=== PATIENT | female | born 1935 | race Caucasian/White ===

== ENCOUNTER 2016-12-04 01:33 | Inpatient (IN) ==
[2016-12-04] MEDS ORDERED: ONDANSETRON 4 MG/2 ML VIAL IV STA (02:22)
[2016-12-04 03:07] LABS: Basophils % 0.4 % (0.0-0.8); Eosinophils # 0.1 10*3/uL (0.0-0.87); Eosinophils % 0.8 % (0.00-10.9); Hematocrit 43.8 VOL% (35.7-47.0); Hemoglobin 15.1 GM/DL (12.0-16.0); Immature Granulocytes % 0.5 %; Immature Granulocytes Absolute 0.05 #; Lymphocytes # 1.5 10*3/uL (1.4-4.0); Lymphocytes % 13.9 % (21.3-54.2); Mean Corpuscular HGB Conc 34.5 GM/DL (32-36); Mean Corpuscular Hemoglobin 32 PG (27-34); Mean Corpuscular Volume 91.4 FL (87-102); Mean Platelet Volume 10.9 FL (9.6-12.0); Monocytes # 0.7 10*3/uL (0.11-0.8); Monocytes % 6.8 % (1.7-12.7); Neutrophils # 8.3 10*3/uL (1.4-7.4); Neutrophils % 77.6 % (38.7-73.9); Platelet Count 153 T/CUMM (130-400); Red Blood Count 4.79 MC/CUMM (3.8-5.5); Red Cell Distribution Width 13.2 % (9.3-17.3); White Blood Count 10.7 T/CUMM (4-12)
[2016-12-04] MEDS ORDERED: ONDANSETRON 4 MG/2 ML VIAL ONE (03:14)
[2016-12-04 03:17] LABS: INR 1.1; PT Patient Result 11.4 SECS; Partial Thromboplastin Time 26.3 SECS (0-40)
[2016-12-04 03:27] LABS: Albumin 3.7 G/DL (3.4-5.0); Bilirubin,Total 0.5 MG/DL (0.2-1.0); Calcium 9.1 MG/DL (8.5-10.1); Osmolality,Calculated 287.8 MOS/KG (273-304); Potassium 3.8 MMOL/L (3.5-5.1); Total Protein 6.2 G/DL (6.4-8.3)
[2016-12-04 03:44] LABS: Apearance,Urine CLEAR (Clear); Bacteria,Urine Occasional /HPF (Few); Bilirubin,Urine Negative (Negative); Blood, Urine Small mg/dL (Negative); Glucose,Urine (UA) Negative (Negative); Ketones,Urine Negative (Negative); Mucus,Urine Occasional /LPF (Occasional); Nitrite,Urine Negative (Negative); Protein,Urine Negative; RBC,Urine 1 /HPF (0-4); Squamous Epithelial Cell,Urine Occasional /HPF (0-10); Transitional Epi Cells,Urine Occasional /HPF (<1); Urine Color Yellow (Yellow); Urine Specific Gravity 1.008 (1.001-1.035); Urine Urobilinogen < 2.0 EU/DL (0.2-1.0); WBC,Urine 2 /HPF (0-6)
--- NOTE | 2016-12-04 05:21 | EKG Report ---
Stationary ECG Study [facility] ER Test Date: 12/04/2016 2:44:59 AM Pat Name: KOURTNEY CARTWRIGHT Department: Room: Gender: F [place] [employer]er: : 1935 Requested by: Shauna Rivas Order Number: [id number] Lulu MD: JOSE RAFAEL MESSINA Intervals [place] Rate: 81 P: 68 [place]: 145 QRS: 54 QRSD: 86 T: 58 QT: 402 QTc: 439 Interpretive Statements SINUS RHYTHM Electronically Signed On 12-06-16 12:38:13 CDT by JOSE RAFAEL MESSINA [id number]
--- NOTE | 2016-12-04 06:47 | Emergency Department Note ---
Alan Gerardo Sierra, am scribing for, and in the presence of, Shauna Rivas DO 02:17. IRob Catherine, DO, personally performed the services described in this documentation, ascribed by Amie Phillips in my presence, and it is both accurate and complete 626 . Arrival - Arrival Chief Complaint: Fall ED Nursing Triage Note: C/O Fall striking head on fireplace- Pt reports that she was dizzy before the fall. +nausea/vomiting. abrasion to bridge of nose and laceration to back of head. Unknown LOC. GCS 15/15 at time of triage. 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 Pt also has an abrasion to the nose and right arm. Pt reports she got up to close her curtains when she got dizzy and fell and hit her head on her brick fireplace stating her "equilibrium is off." Pt states this is her second fall of this night and was seen at [facility] for the first fall where she slid out of her chair. Nurse spoke with [facility] and was told pt had a CT of the head that was negative except for the brain tumor that pt is aware of and pt was cleared and discharged home around 2200 tonight. Pt states she had an operation on her brain tumors in 1995 where her skull was left open. Pt states when she fell this time EMS suggested she come here for an MRI of the brain. PT states she does live at home alone and used her LifeAlert to call EMS. Pt reports she alternated aleve and aspirin for arthritis. Pt denies neck pain at this time. PT is also unaware if her tetanus is UTD. Pt's PCP is Dr. Bagley. Pt denies heart problems or DM. No other complaints/pain in ED. Onset (ago): hour(s) Consistency: constant Severity: moderate Severity scale (1-10): 4 Quality: sharp Date of Last Menstrual Period: Hysterectomy Allergies/Adverse Reactions: Allergies Allergy/AdvReac Type Severity Reaction Status Date / Time acetaminophen Allergy Intermediate RASH Verified 12/04/16 01:46 [From Darvocet-N] meperidine [From Demerol] Allergy Intermediate RASH Verified 12/04/16 01:46 propoxyphene Allergy Intermediate RASH Verified 12/04/16 01:46 [From Darvocet-N] Home Medications: Home Medications Medication Instructions Recorded Confirmed Type No Known Home Medications [No 12/04/16 12/04/16 History Known Home Medications] Review of System - Review of System 12 point system: reviewed and no additional remarkable complaints except as stated - Review of System Constitutional: Present: weakness, other (dizziness). Absent: chills, fever Respiratory: Absent: cough Cardiovascular: Absent: chest pain Gastrointestinal: Present: nausea. Absent: abdominal pain Musculoskeletal: Absent: arm pain, back pain, leg pain, neck pain Skin: Present: other (abrasion to the nose and right arm; laceration to the back of the scalp s/p fall) Neurological: Present: weakness, abnormal gait, vertigo. Absent: headache Psychiatric: Absent: anxiety Medical,Surgical,& Family Hx - Medical History Cardio: History of: Hypertension Other: History of: Miscellaneous Medical Problems (brain tumors) - Surgical History Neurologic Surgeries: Surgical HX of: Neurologic Surgery - Family History Family History: noncontributory - Social History Smoking Status: Never smoker Frequency of Alcohol Use: None Type of Drug Use: None Marital Status: Single Lives With:: Alone Functional capacity: independent ambulation (vb) Exam Vital Signs: Vital Signs Temperature 98.2 F 12/04/16 01:33 Pulse Rate 84 12/04/16 01:33 Respiratory Rate 18 12/04/16 01:33 Blood Pressure 179/74 12/04/16 01:33 O2 Sat by Pulse Oximetry 95 12/04/16 01:33 - General General appearance: alert, in no apparent distress - Head Head exam: Present: atraumatic, normocephalic - Eye Eye exam: Present: PERRL, EOMI - ENT ENT exam: Present: mucous membranes moist. Absent: mucous membranes dry - Neck Neck exam: Present: full ROM. Absent: tenderness - Chest Chest inspection: Present: symmetric chest wall rise. Absent: tenderness - Respiratory Respiratory exam: Present: normal lung sounds bilaterally. Absent: respiratory distress - Cardiovascular Cardiovascular exam: Present: regular rate, normal rhythm, normal heart sounds - Abdominal Exam Abdominal exam: Present: soft, normal bowel sounds. Absent: distention, tenderness, diminished bowel sounds - Extremities Exam Extremities exam: Present: full ROM, other (she has a large abrasion to the right forearm). Absent: tenderness - Back Exam Back exam: Present: full ROM. Absent: tenderness - Neurological Exam Neurological exam: Present: alert, oriented X3, CN II-XII intact. Absent: motor sensory deficit - Psychiatric Psychiatric exam: Present: normal affect, normal mood - Skin Skin exam: Present: warm, dry, other (nasal abrasion; abrasion to the right arm ; 2.5 cm laceration to the back of the skull into the dermis and epidermis) Course Course Narrative: This is an 81-year-old female who is coming to the ER today following a second episode of a fall today. This was a reports to me that she has known tumors in her brain she had surgery back in 1998 for this. She is followed by Dr. Harvey who is a neurosurgeon at the [facility] in [place]. She states to me that she in the past 2 years has just been receiving x-rays but they haven 't done any other treatment. She has been having a sensation of very bad dizziness that has been ongoing and progressive for about the last 7-10 days. Last night she actually fell once out of her chair she was taken to a smaller Hospital evaluated and sent home. She stated to me that a little bit later in the night she was trying to close some curtains and she again became very dizzy and fell backward this time she struck her head on the fireplace. She was able to use her life alert button and called for 911. She stated it was the medics the told her she ought to come to our hospital because we could do an MRI to further evaluate why she was falling. In my evaluation the patient's complaining of her head hurting with laceration is but she has no other complaints such as chest pain abdominal pain or new symptoms. She does live alone but she is very capable she says she takes care of her self she does have some caregivers that come in but she normally does everything on her own. Physical exam the patient is awake and alert her vital signs are stable HEENT exam pupils are equal and reactive. She does have about a 3 cm linear scalp laceration to the left posterior parietal region. It is into the dermis epidermis and galeal tissues. The edges are smooth bleeding is controlled. Her neck is otherwise supple she has no pain to the cervical thoracic or lumbar spine. Heart has a regular rate and rhythm lungs are clear in the anterior and posterior feels her abdomen is round soft and nontender her extremities are intact. She does have some of the abrasions noted to the right forearm and she stated this occurred when she fell the first time tonight. Aortic exam she has no focal deficits for me she is alert and appropriate and answers all my questions. Treatment in the ER workup for the syncope and vertigo it is CT of her head and neck CT of the head dishes the chronic changes from the meningiomas but no bleeding no fractures no shift. The CT of her neck to shows arthritis. Multiple blood tests were performed and are negative first EKG was also negative. I spoke to our hospitalist to had concerns about admitting her without speaking to her neurosurgeon first. The patient wanted to go to [place] I did place a phone call to [facility], but the [place] was full and unable to take the patient. She then requested to go to [place]. I did place a phone call to the [facility] multifocal button inspector Dr. Ward who is on-call for Dr. Harvey of neurosurgery. She reviewed the patient's case and felt that at this point she needs workup for the syncope from a medical standpoint but the neurosurgery would not provide any benefit to her care. She is recommended that we admit her for medical workup. I placed a phone call to the hospitalist service and spoke to Dr. Roberto and the patient will be admitted here for ongoing treatment. - Consultations Consultation #1: Dr. ward at [facility] Time: 06:30 Consultation #2: Dr. Roberto Time: 07:15 Procedures - Laceration Laceration 1 Site: scalp Size (cm): 3.0 Description: linear Depth: simple, single layer, involves muscle layer (galea has been cut as well - down to the skull) Local Anesthetic: lidocaine 1%, with epi Amount of Anesthesia Used (mL): 10 Pre-repair: wound explored, irrigated extensively Skin layer closed with: other (angel) Subcutaneous layer closed with: vicryl Size: 4-0 Number of sutures: 4 Technique: simple, interrupted Results - Labs CBC & BMP: 12/04/16 02:55 12/04/16 02:55 Lab Results: I have reviewed the patients labs Labs: Laboratory Tests 12/04/16 02:55 Neut % (Auto) 77.6 H Lymph % (Auto) 13.9 L Neut # (Auto) 8.3 H Laboratory Tests 12/04/16 02:55 INR 1.1 PT Patient/Control Mix 11.4 Circ Anticoag PTT 26.3 Laboratory Tests 12/04/16 02:55 Chloride 108 H BUN/Creatinine Ratio 25.00 H Alkaline Phosphatase 138 H Total Protein 6.2 L Laboratory Tests 12/04/16 02:55 Urine Color Yellow Urine Appearance Clear Urine pH 6.0 Ur Specific [place] 1.008 Urine Protein Negative Urine Glucose (UA) Negative Urine Ketones Negative Urine Blood Small Urine Nitrate Negative Urine Bilirubin Negative Urine Urobilinogen < 2.0 H Urine Leukocytes Trace Urine RBC 1 Urine WBC 2 Ur Squamous Epith Cells Occasional Ur Transition Epith Cell Occasional Urine Bacteria Occasional Urine Mucus Occasional - EKG EKG results: interpreted by ERMD, WNL, sinus rhythm - Diagnostic Findings Procedure: CT: report reviewed by me (neck has arthritis/head shows tumors - no shift or bleed or fracture) Disposition Clinical Impression: Vertigo, Falls frequently, Laceration of scalp Case discussed with: patient Disposition: Still a Patient Condition: Stable Time of Disposition: 07:16
--- NOTE | 2016-12-04 07:10 | CT Report ---
CT brain Indication: Head injury, fall Comparison: 19 September 2014 Technique: Axial CT imaging of the brain is performed without contrast with 3 mm increments. Findings: No evidence of acute hemorrhage or acute infarct seen. Extra-axial tumor superiorly is slightly increased in size compared to previous exam mostly isodense to brain parenchyma, 4.6 x 3.1 cm in size. There is edema in the adjacent white matter causing localized mass effect. Additional isointense densities adjacent to the cerebral falx inferiorly is present with ill-defined borders but similar findings were present on previous exam. There is decreased density and volume loss seen in the superior medial cerebellar hemisphere similar to previous exam. Remaining brain parenchyma attenuation and differentiation appears within normal limits. The ventricles and cisterns are normal in caliber. Craniotomy changes are present both anterior and posteriorly similar to previous exam. Bone density appears mottled similar to previous exam. No other cranial or skull base abnormality is identified. Impression: Slight increase in meningioma size when compared previous study. There is increased adjacent white matter decreased density could indicate worsening and vasogenic edema. No other acute findings. This CT exam was performed using one or more the following dose reduction techniques: Automated exposure control, adjustment of the MA and/or KV according to patient size, or use of iterative reconstruction technique. PROCEDURE INTERPRETED AT [facility] DEPARTMENT OF RADIOLOGY Final Report Signed by: Dr. Thanh Santos
--- NOTE | 2016-12-04 07:22 | CT Report ---
CT cervical spine Indication: Neck pain after injury Comparison: None available Technique: Axial CT imaging of the cervical spine is performed without contrast. Computer reformatting is viewed in the sagittal and coronal planes. Findings: No fracture is seen. Alignment of the cervical spine is within normal limits. Vertebral body heights are normal. There is loss of disc space and degenerative change of moderate to severe at C6-7 and moderate at C5-6. Cvdi-zv-[id number] changes are present at C3-4. No other abnormality is demonstrated. Impression: No evidence of acute injury demonstrated. This CT exam was performed using one or more the following dose reduction techniques: Automated exposure control, adjustment of the MA and/or KV according to patient size, or use of iterative reconstruction technique. PROCEDURE INTERPRETED AT [facility] DEPARTMENT OF RADIOLOGY Final Report Signed by: Dr. Thanh Santos
--- NOTE | 2016-12-04 08:27 | Hospitalist History & Physical ---
Assessment and Plan - Time spent with patient Time spent with patient: Greater than 30 minutes (1) Brain hemangioma Status: Acute Assessment and plan: 81WF admitted w vertigo and Left extremity weakness due to increasing size of her known hemangiomas and vasogenic edema. pt has had frequent falls and struck her head last night requiring angel to her scalp. pt sees a neurosurgeon in [place] but they states they could do nothing for her. pt requesting to be a DNR. will admit and do workup for vertigo and left hemiplegia but most likely this is due to her brain tumors. pt will need swing bed placement for rehab and maybe even permanent placement if this continues to worsen. pt has no family and lives alone. all of this has been discussed w dr donald. brain hemangioma/vasogenic edema/left ext weakness--start some steroids for vasogenic edema, PT and OT for eval and treat for swing bed placement mild UTI--abx and symptomatic treatment. could be reason why she has frequent urination recently. falls/ext weakness/vertigo--treat for nausea that accompanies her vertigo. PT eval. Current Visit: Yes (2) Vasogenic brain edema Status: Acute Current Visit: Yes (3) Vertigo Status: Acute Current Visit: Yes (4) Falls frequently Status: Acute Current Visit: Yes (5) Laceration of scalp Status: Acute Current Visit: Yes (6) UTI (urinary tract infection) Status: Acute Current Visit: Yes History of Present Illness Chief complaint: dizziness/nausea History of present illness: 81WF w history of brain tumors presenting to the ED w dizziness and nausea with fall where she struck her head. pt is followed by a neurosurgeon at [facility] in [place]. she had surgery in 1995 for benign tumors. she did well p this. she then developed more and received radiation that ended in may 2016. pt states she follows up every 6 months w MRI and her last one was in sep. she was getting headaches from increasing pressure in her brain and left sided weakness. her NS, dr masters, prescribed her a steroid taper and she alternates aleve and tylenol for her pressure headaches when needed. pt went to [place] ER yesterday by ambulance for dizziness and nausea. she was given zofran and linen room attendant took her back home. after they left, she tried to get up and go to bathroom, got dizzy/nauseated and fell and hit her head on the fireplace. she states her left sided weakness is worsening as well. she pushed her life alert button and linen room attendant brought her to [facility]. pt denies any other health problems other than frequency w urination, and her surgical history includes the brain surgery, and hystectomy. pt also denies headache, blurred vision, CP, SOB, abdominal pain, or LE edema. upon exam, pt is alert and oriented and well versed w her health history. she has angel to posterior skull and her hair is matted w blood. she also has some abrasions to her right forearm. CT is showing a slight increase in meningioma size and vasogenic edema. her labs are normal w only elevated ALP of 138 and trace leukocytes on UA. dr Rivas from ED spoke w dr Aparicio, the NS in [facility] physician and they stated pt needed to be worked up for syncope and there was nothing they could do for her over there. pt states she doesnt want to be intubated or resuscitated if anything was to happen to her while here. after discussion w dr Rivas in ED and dr Donald the hospitalist, it was agreed pt needed to be admitted for syncope and most likely rehab placement. Home Medications Medication Instructions Recorded Confirmed Type No Known Home Medications [No 12/04/16 12/04/16 History Known Home Medications] Allergies Allergy/AdvReac Type Severity Reaction Status Date / Time acetaminophen Allergy Intermediate RASH Verified 12/04/16 01:46 [From Darvocet-N] meperidine [From Demerol] Allergy Intermediate RASH Verified 12/04/16 01:46 propoxyphene Allergy Intermediate RASH Verified 12/04/16 01:46 [From Darvocet-N] Medical,Surgical,& Family Hx - Medical History Cardio: History of: Hypertension Genitourinary: History of: Bladder Problem Other: History of: Miscellaneous Medical Problems (brain tumors) - Surgical History Neurologic Surgeries: Surgical HX of: Neurologic Surgery Reproductive Surgeries: Surgical HX of;: Hysterectomy - Family History Family History: Reports;: Family Heart Disease - Social History Smoking Status: Never smoker Frequency of Alcohol Use: None Type of Drug Use: None Marital Status: Lives With:: Alone Review of systems: A complete 10 system review of systems was obtained and pertinent negatives and positives are in HPI Exam - Constitutional Vitals: Period Temp Pulse Resp BP Sys/Garvey Pulse Ox Last 24 Hr 98.2 F-98.2 F 84-84 18-18 179-179/74-74 95 Exam: Constitutional System: No distress. No tremulousness. Head: Normocephalic, angel to posterior head w hair matted w blood Ears, Nose and Throat System: No evidence of Otitis or Mastoiditis. No epistaxis or discharge, bruising to tongue Eyes System: Pupils equal, round, and reactive. Extraocular muscles intact. Neck: Supple, without adenopathy, No jugular venous distention. No thyromegaly, neck mass, or prior surgery apparent. Respiratory System: Chest clear to auscultation. Cardiovascular System: Heart with regular rate and rhythm. No murmur. GI System: Abdomen soft, nontender. Normo active bowel sounds present. Musculoskeletal System: limbs with no pedal edema. Full distal pulses, left UE 3+/5, left w passive rigidity 2/5 Neurological System: No discernable sensory deficit. No aphasia Psychiatric System: Conversation is rational Results - Labs CBC & BMP: 12/04/16 02:55 12/04/16 02:55 Lab Results: I have reviewed the past 24 hour labs - EKG EKG results: interpreted by HERNANDO - Diagnostic Findings Procedure: CT: report reviewed by me (increasing size of hemangioma and vasogenic edema)
[2016-12-04] MEDS ORDERED: DOCUSATE SODIUM 100 MG CAPSULE PO PRN (08:44)
[2016-12-04] MEDS ORDERED: ONDANSETRON 4 MG/2 ML VIAL IV PRN (08:44)
[2016-12-04] MEDS ORDERED: guaiFENesin/DM ER 600-30 MG TABLET PO PRN (08:44)
[2016-12-04] MEDS ORDERED: PROMETHAZINE 25 MG/1 ML VIAL IM PRN (08:44)
[2016-12-04] MEDS ORDERED: MORPHINE 2 MG/1 ML SYRINGE IV PRN (08:44)
[2016-12-04] MEDS ORDERED: diphenhydrAMINE CAP 25 MG CAPSULE PO PRN (08:44)
[2016-12-04] MEDS ORDERED: NAPROXEN 500 MG TABLET PO PRN (08:51)
[2016-12-04] MEDS ORDERED: ASPIRIN EC 325 MG TABLET PO SCH (09:00)
[2016-12-04] MEDS ORDERED: DEXAMETHASONE 4 MG TABLET PO SCH (09:00)
[2016-12-04 10:20] LABS: Risk Ratio 3.14; Thyroid Stimulating Hormone 0.785 uIU/ml (0.358-3.74); VLDL CHOLESTEROL 54.8 MG/DL
[2016-12-04 10:31] LABS: Troponin I Only 0.018 NG/ML (0.00-0.045)
[2016-12-04] MEDS ORDERED: ASPIRIN EC 325 MG TABLET PO PRN (10:59)
[2016-12-04] MEDS: SODIUM CHLORIDE 0.9% 1,000 ML IV SCH (11:22)
[2016-12-04] MEDS: ENOXAPARIN 30 MG/0.3 ML SYRINGE SUBCUT SCH (13:52)
[2016-12-04] MEDS: DEXAMETHASONE 4 MG TABLET PO SCH ×3 (13:52→23:47)
[2016-12-04] MEDS: PANTOPRAZOLE 40 MG TABLET PO SCH (13:52)
--- NOTE | 2016-12-04 15:10 | Neurology Consult Note ---
History of Present Illness History of present illness: 81 years old right-handed white lady with history of what sounded like meningiomas presented to the ED w dizziness and nausea with fall where she struck her head. pt is followed by a neurosurgeon at [facility] in [place]. she had surgery in 1995 for benign tumors. she did well. she then developed more and received radiation that ended in may 2016. pt states she follows up every 6 months with MRI and her last one was in sep 2016. she was getting headaches from increasing pressure in her brain and left sided weakness. Her neurosurgeon prescribed her a steroid taper and she alternates aleve and tylenol for her pressure headaches when needed. pt went to [place] ER yesterday by ambulance for dizziness and nausea. she was given zofran and applications engineering manager took her back home. after they left, she tried to get up and go to bathroom, got dizzy/nauseated and fell and hit her head on the fireplace. she states her left sided weakness is worsening as well. she pushed her life alert button and applications engineering manager brought her to [facility]. pt denies any other health problems other than frequency with urination, and her surgical history includes the brain surgery, and hystectomy. pt also denies headache, blurred vision, CP, SOB, abdominal pain , or LE edema. CT is showing a slight increase in meningioma size and vasogenic edema. Home Medications Medication Instructions Recorded Confirmed Type No Known Home Medications [No 12/04/16 12/04/16 History Known Home Medications] Allergies Allergy/AdvReac Type Severity Reaction Status Date / Time acetaminophen Allergy Intermediate RASH Verified 12/04/16 01:46 [From Darvocet-N] meperidine [From Demerol] Allergy Intermediate RASH Verified 12/04/16 01:46 propoxyphene Allergy Intermediate RASH Verified 12/04/16 01:46 [From Darvocet-N] 12 point system: reviewed and no additional remarkable complaints except as stated Medical,Surgical,& Family Hx - Medical History Cardio: History of: Hypertension Genitourinary: History of: Bladder Problem Other: History of: Miscellaneous Medical Problems (brain tumors) - Surgical History Neurologic Surgeries: Surgical HX of: Neurologic Surgery (removal of some brain tumors, but they came back. radiation) Reproductive Surgeries: Surgical HX of;: Hysterectomy - Family History Family History: Reports;: Family Heart Disease - Social History Smoking Status: Never smoker Frequency of Alcohol Use: None Type of Drug Use: None Exam - Constitutional Exam: GENERAL: Patient is in no acute distress. NECK: Neck is supple. There is no JVD. No carotid bruits present. No thyroid masses. CVS: First and second heart sounds are normal. There is no S3 present. Regular rate and rhythm. RESPIRATORY: Lungs are clear to auscultation without any rales or rhonchi. ABDOMEN: Soft and non-tender. Bowel sounds are present. There is no hepatosplenomegaly. EXT: There is no palpable edema. Peripheral pulses are present. Skin: No rashes Central Nervous system: General: Alert, awake and Oriented x 3 Speech: Fluent Comprehension: Intact and normal Facial expressions: Normal Cranial Nerves: CN1/Olfactory: Normal CN II/ Optic: Normal, Visual Morin unreliable CN III, and : MAHENDRA & EOMI CN V: Normal & intact CN VII: face is symmetric CNVIII: Normal CN XI/X/XI/XII: Intact and Normal Motor: Right hypertonia Strength in the right 4/5 Strength in the left 2-3/5 Sensory: Grossly intact for all the modalities of PP, LT and temp sense Reflexes: 1+ and symmetrical Cerebellar function: Normal finger to nose and heel to ashley testing. Toes: Left toe is upgoing Gait: Not tested at this time Results - Labs CBC & BMP: 12/04/16 02:55 12/04/16 02:55 Assessment and Plan (1) Left hemiparesis Status: Acute Assessment and plan: Consult TMR She lives alone. I have discussed at length with the patient. She cannot live alone anymore Current Visit: Yes (2) Recurrent meningioma of the brain Status: Acute Assessment and plan: Continue Decadron We will watch her closely Current Visit: Yes
[2016-12-05] MEDS: DEXAMETHASONE 4 MG TABLET PO SCH ×2 (01:54→08:52)
[2016-12-05] MEDS: SODIUM CHLORIDE 0.9% 1,000 ML IV SCH (05:07)
[2016-12-05 07:44] LABS: Calcium 8.4 MG/DL (8.5-10.1); Osmolality,Calculated 292.7 MOS/KG (273-304)
[2016-12-05 08:48] LABS: Hematocrit 44.2 VOL% (35.7-47.0); Hemoglobin 14.4 GM/DL (12.0-16.0); Immature Granulocytes % 0.5 %; Immature Granulocytes Absolute 0.03 #; Lymphocytes # 0.9 10*3/uL (1.4-4.0); Lymphocytes % 14.4 % (21.3-54.2); Mean Corpuscular HGB Conc 32.6 GM/DL (32-36); Mean Corpuscular Hemoglobin 31 PG (27-34); Mean Corpuscular Volume 95.1 FL (87-102); Mean Platelet Volume 11.4 FL (9.6-12.0); Monocytes # 0.1 10*3/uL (0.11-0.8); Neutrophils % 84.1 % (38.7-73.9); Platelet Count 154 T/CUMM (130-400); Red Blood Count 4.65 MC/CUMM (3.8-5.5); White Blood Count 5.9 T/CUMM (4-12)
[2016-12-05] MEDS: ENOXAPARIN 30 MG/0.3 ML SYRINGE SUBCUT SCH (08:52)
[2016-12-05] MEDS: PANTOPRAZOLE 40 MG TABLET PO SCH (08:52)
--- NOTE | 2016-12-05 10:10 | Discharge Summary ---
Hospital Course - Hospital Course Hospital Course: Ms Baptiste was admitted for fall with laceration to her head. This was closed in the ER. CT head revealed slight enlarging meningioma was vasogenic edema. She was initiated on dexamethasone, and Neurology was consulted. She was accepted to [facility] for re[facility], and by discharge had met maximum benefit of hospitalization. I spent 37 minutes coordinating this discharge. - Time spent with patient Time with patient DS: Greater than 30 minutes Discharge Plan - Discharge Data Disposition: Disch To Home/Self Care Condition at Discharge: Stable Discharge Diet: advance to your usual diet Activity: resume usual activities as tolerated - Discharge Medications New Dexamethasone Tab [Decadron Tab] 4 mg PO QID tablet - Follow Up or Referral - Forms/Instructions Exam - Constitutional Vitals: Period Temp Pulse Resp BP Sys/Garvey Pulse Ox Last 24 Hr 97.4 F-99.1 F 80-99 18-20 134-180/66-86 92-97 General appearance: normal weight, no acute distress - Head Head exam: Present: normal inspection, normocephalic - Eye Eye exam: Present: EOMI Pupils: Present: MAHENDRA - ENT ENT exam: Present: normal exam - Neck Neck exam: Present: normal inspection - Respiratory Respiratory exam: Present: clear to auscultation bilaterally. Absent: accessory muscle use, prolonged expiratory phase, wheezes - Cardiovascular Cardiovascular exam: Present: regular rate and rhythm. Absent: bradycardia, irregular rhythm, systolic murmur - GI/Abdominal GI/Abdominal exam: Present: normal bowel sounds - Extremities Exam Extremities exam: Present: normal inspection Discharge Results Labs on day of discharge: Labs from last 24 hours 12/05/16 12/05/16 12/04/16 06:04 06:04 09:53 WBC 5.9 D RBC 4.65 Hgb 14.4 Hct 44.2 MCV 95.1 MCH 31 MCHC 32.6 RDW 13.0 Plt Count 154 MPV 11.4 Neut % (Auto) 84.1 H Lymph % (Auto) 14.4 L Mcminn % (Auto) 1.0 L Eos % (Auto) 0.0 Baso % (Auto) 0.0 Neut # (Auto) 5.0 Lymph # (Auto) 0.9 L Mcminn # (Auto) 0.1 L Eos # (Auto) 0.0 Baso # (Auto) 0.0 Immature Gran % 0.5 Nucleated RBC % 0.0 Immature Gran # 0.03 Nucleated RBCs # 0.00 Sodium 145 Potassium 4.0 Chloride 110 H Carbon Dioxide 25 Anion Gap 14.0 BUN 18 Creatinine 0.60 GFR Calculation 84 BUN/Creatinine Ratio 30.00 H Glucose 152 H Calculated Osmolality 292.7 Calcium 8.4 L Total Creatine Kinase CK-MB (CK-2) Troponin I Triglycerides 274 H Cholesterol 273 H LDL Cholesterol 119.0 VLDL Cholesterol 54.8 HDL Cholesterol 87 H Heart Disease Risk Ratio 3.14 Free T4 TSH 3rd Generation 0.785 12/04/16 12/04/16 09:53 09:53 WBC RBC Hgb Hct MCV MCH MCHC RDW Plt Count MPV Neut % (Auto) Lymph % (Auto) Mcminn % (Auto) Eos % (Auto) Baso % (Auto) Neut # (Auto) Lymph # (Auto) Mcminn # (Auto) Eos # (Auto) Baso # (Auto) Immature Gran % Nucleated RBC % Immature Gran # Nucleated RBCs # Sodium Potassium Chloride Carbon Dioxide Anion Gap BUN Creatinine GFR Calculation BUN/Creatinine Ratio Glucose Calculated Osmolality Calcium Total Creatine Kinase 66 CK-MB (CK-2) 1.9 Troponin I 0.018 Triglycerides Cholesterol LDL Cholesterol VLDL Cholesterol HDL Cholesterol Heart Disease Risk Ratio Free T4 1.07 TSH 3rd Generation Preliminary micro results at discharge 12/04/16 Unknown Urine Culture - Preliminary Urine,Voided No Growth at 24 hours. DS: Provider Date of admission: 12/04/16 07:23 Primary care physician: Su Jeffries Attending physician on admission: Madison Lr MD Consults: 12/04/16 08:44 Consult to Physician [CONS] Routine Comment: vertigo w known brain hemangioma Consulting Provider: Edouard Morelos When should Consulting Provider be notified: Now Consult Notification Comment: no answer Called and left message at 1038 12/04/16 08:47 Consult to Case Mgmt/Social Srvs [CONS] Routine Reason for Case Mgmt/Social Srvs: Swingbed/SNF/[facility] Re[facility] 12/04/16 08:48 Consult to Occupational Therapy [CONS] Routine Reason for Occupational Therapy: Evaluate and Treat Consult Comment: brain hemangioma w left weakness Consult to Physical Therapy [CONS] Routine Reason for Physical Therapy: Evaluate and Treat Consult Comment: brain hemangioma, left U/LE weakness 12/04/16 11:54 Consult to Pharmacy [CONS] Routine Reason for Pharmacy Consult: Adjust Meds Renal Funct Discharging clinician: Madison Lr MD Expected date of discharge: 12/05/16
[2016-12-05 12:28] VITALS: BP 150/78
== END 2016-12-05 13:10 | DRG 41 ==
LOC: N.ED 01:33 → N.EDINP 07:23 → N.TELEN 08:56 → N.2E 09:42
PROVIDERS: ADMIT Internal Medicine; ATTEND Internal Medicine

== ENCOUNTER 2017-06-22 10:41 | Inpatient (IN) ==
[2017-06-22 12:29] LABS: Basophils % 0.2 % (0.0-0.8); Eosinophils % 0.1 % (0.00-10.9); Hematocrit 34.7 VOL% (35.7-47.0); Hemoglobin 11.6 GM/DL (12.0-16.0); Immature Granulocytes Absolute 0.48 #; Lymphocytes # 1.1 10*3/uL (1.4-4.0); Lymphocytes % 9.5 % (21.3-54.2); Mean Corpuscular HGB Conc 33.4 GM/DL (32-36); Mean Corpuscular Hemoglobin 32 PG (27-34); Mean Corpuscular Volume 95.1 FL (87-102); Mean Platelet Volume 9.6 FL (9.6-12.0); Monocytes # 0.2 10*3/uL (0.11-0.8); NRBC # 0.03 10*3/uL; Neutrophils # 10.1 10*3/uL (1.4-7.4); Neutrophils % 84.2 % (38.7-73.9); Platelet Count 260 T/CUMM (130-400); Red Blood Count 3.65 MC/CUMM (3.8-5.5); Red Cell Distribution Width 15.6 % (9.3-17.3)
[2017-06-22 12:52] LABS: Anisocytosis 1+; Platelet Estimate Normal
[2017-06-22] MEDS ORDERED: cefTRIAXone 1,000 MG in SODIUM CHLORIDE 0.9% 100 ML IV STA (13:44)
[2017-06-22 13:46] LABS: Calcium 8.2 MG/DL (8.5-10.1); Osmolality,Calculated 285.8 MOS/KG (273-304)
[2017-06-22] MEDS ORDERED: cefTRIAXone 1,000 MG VIAL ONE (14:25)
[2017-06-22] MEDS ORDERED: SODIUM CHLORIDE 0.9% 100 ML IV ONE (14:26)
[2017-06-22] MEDS ORDERED: MORPHINE 2 MG/1 ML SYRINGE IV PRN (16:33)
[2017-06-22] MEDS ORDERED: ONDANSETRON 4 MG/2 ML VIAL IV PRN (16:33)
[2017-06-22] MEDS ORDERED: ALBUTEROL 2.5 MG/3 ML NEB RESP TX PRN (16:33)
[2017-06-22] MEDS ORDERED: diphenhydrAMINE CAP 25 MG CAPSULE PO PRN (16:33)
[2017-06-22] MEDS ORDERED: ACETAMINOPHEN 325 MG TABLET PO PRN ×2 (16:33)
[2017-06-22] MEDS ORDERED: DOCUSATE SODIUM 100 MG CAPSULE PO PRN ×2 (16:33→16:37)
[2017-06-22] MEDS ORDERED: LEVOFLOXACIN INJ 750 MG in PREMIX 1 EACH IV SCH (17:00)
[2017-06-22] MEDS ORDERED: PANTOPRAZOLE 40 MG TABLET PO SCH (17:00)
[2017-06-22] MEDS: ALBUTEROL/IPRATROPIUM 3 ML NEB RESP TX SCH (19:12)
[2017-06-22] MEDS ORDERED: ZINC OXIDE PASTE 113 GM TUBE TOP PRN (19:58)
[2017-06-22] MEDS: APIXABAN 5 MG TABLET PO SCH (21:42)
[2017-06-22] MEDS: BENZONATATE 100 MG CAPSULE PO SCH (21:42)
[2017-06-22] MEDS: SODIUM CHLORIDE 0.9% 1,000 ML IV SCH (21:49)
[2017-06-23] MEDS: ALBUTEROL/IPRATROPIUM 3 ML NEB RESP TX SCH ×4 (00:20→19:26)
[2017-06-23] MEDS: MECLIZINE 25 MG TABLET PO PRN ×2 (02:44→20:12)
[2017-06-23 06:25] LABS: Basophils % 0.4 % (0.0-0.8); Eosinophils % 0.1 % (0.00-10.9); Hematocrit 31.1 VOL% (35.7-47.0); Hemoglobin 10.4 GM/DL (12.0-16.0); Immature Granulocytes % 5.6 %; Lymphocytes # 1.2 10*3/uL (1.4-4.0); Lymphocytes % 11.4 % (21.3-54.2); Mean Corpuscular HGB Conc 33.4 GM/DL (32-36); Mean Corpuscular Hemoglobin 32 PG (27-34); Mean Corpuscular Volume 95.1 FL (87-102); Mean Platelet Volume 9.7 FL (9.6-12.0); Monocytes # 0.3 10*3/uL (0.11-0.8); Monocytes % 2.4 % (1.7-12.7); NRBC # 0.02 10*3/uL; Neutrophils # 8.6 10*3/uL (1.4-7.4); Neutrophils % 80.1 % (38.7-73.9); Platelet Count 251 T/CUMM (130-400); Red Blood Count 3.27 MC/CUMM (3.8-5.5); Red Cell Distribution Width 15.8 % (9.3-17.3); White Blood Count 10.7 T/CUMM (4-12)
[2017-06-23 06:57] LABS: Calcium 8.2 MG/DL (8.5-10.1); Osmolality,Calculated 280.1 MOS/KG (273-304); Potassium 4.1 MMOL/L (3.5-5.1)
[2017-06-23 07:24] LABS: Hypochromasia 1+; Lymphocytes 15 % (20-55); Promyelocytes 1 %; Segmented Neutrophils 83 % (50-85); Total Cells Counted 100
[2017-06-23 07:25] LABS: Microcytosis 1+; Platelet Estimate Normal
[2017-06-23] MEDS: BENZONATATE 100 MG CAPSULE PO SCH ×3 (08:40→20:43)
[2017-06-23] MEDS: PANTOPRAZOLE 40 MG TABLET PO SCH (08:40)
[2017-06-23] MEDS: APIXABAN 5 MG TABLET PO SCH ×2 (08:40→20:43)
[2017-06-23] MEDS: MULTIVITAMIN (PRENATAL) TABLET PO SCH (08:40)
[2017-06-23] MEDS: DEXAMETHASONE 4 MG TABLET PO SCH (08:40)
[2017-06-23] MEDS: LOSARTAN 50 MG TABLET PO SCH (08:40)
[2017-06-23] MEDS: SODIUM CHLORIDE 0.9% 1,000 ML IV SCH ×4 (08:43→20:09)
[2017-06-23] MEDS: SODIUM HYPOCHLORITE 0.25% IRRIG 473 ML BOTTLE TOP SCH (08:49)
[2017-06-23] MEDS: CHLORHEXIDINE 4% SOLN 118 ML BOTTLE TOP SCH (08:50)
[2017-06-23] MEDS: COLLAGENASE OINT 30 GM TUBE TOP SCH (10:22)
[2017-06-24] MEDS: ALBUTEROL/IPRATROPIUM 3 ML NEB RESP TX SCH ×2 (00:51→07:12)
[2017-06-24] MEDS: SODIUM CHLORIDE 0.9% 1,000 ML IV SCH (05:14)
[2017-06-24] MEDS: BENZONATATE 100 MG CAPSULE PO SCH (08:16)
[2017-06-24] MEDS: LOSARTAN 50 MG TABLET PO SCH (08:16)
[2017-06-24] MEDS: MULTIVITAMIN (PRENATAL) TABLET PO SCH (08:16)
[2017-06-24] MEDS: APIXABAN 5 MG TABLET PO SCH (08:16)
[2017-06-24] MEDS: DEXAMETHASONE 4 MG TABLET PO SCH (08:16)
[2017-06-24] MEDS: PANTOPRAZOLE 40 MG TABLET PO SCH (08:16)
[2017-06-24] MEDS: CHLORHEXIDINE 4% SOLN 118 ML BOTTLE TOP SCH (08:16)
[2017-06-24] MEDS: COLLAGENASE OINT 30 GM TUBE TOP SCH (08:17)
[2017-06-24] MEDS: SODIUM HYPOCHLORITE 0.25% IRRIG 473 ML BOTTLE TOP SCH (08:17)
[2017-06-24 12:30] VITALS: BP 150/69
== END 2017-06-24 13:04 | disposition home or self-care (01) | DRG 193 ==
LOC: EDUNIT# → EDBD → N.ED 10:41 → N.5E 14:41
PROVIDERS: ADMIT Internal Medicine Geriatric Medicine; ATTEND Internal Medicine Geriatric Medicine